=== PATIENT | female | born 1990 | race Caucasian/White ===

== ENCOUNTER 2019-04-13 10:42 | Emergency (ER) | payer OTHER ==
[2019-04-13] MEDS ORDERED: ONDANSETRON ODT 4 MG TABLET TL STA (11:11)
[2019-04-13] MEDS ORDERED: SUMAtriptan 6 MG/0.5 ML VIAL SUBQ STA (11:11)
[2019-04-13] MEDS ORDERED: PROMETHAZINE INJ 25 MG in SODIUM CHLORIDE 0.9% 50 ML IV STA (12:25)
[2019-04-13] MEDS ORDERED: KETOROLAC 30 MG/ML VIAL IVP STA (12:25)
[2019-04-13] MEDS ORDERED: SODIUM CHLORIDE 0.9% 1,000 ML IV ONE ×2 (12:25→13:33)
[2019-04-13] MEDS ORDERED: diphenhydrAMINE INJ 50 MG/ML VIAL IVP STA (12:25)
[2019-04-13 14:08] VITALS: BP 89/57
--- NOTE | 2019-04-13 14:10 | ED Physician Documentation ---
PD HPI HEADACHE - Stated complaint Stated Complaint: LUONG - Chief complaint Chief Complaint: Neuro - History obtained from History obtained from: Patient - History of Present Illness Timing - onset: How many days ago (2-3) Timing - onset during: Rest Timing - duration: Days (2-3) Timing - details: Gradual onset Pain level max: 8 Pain level now: 7 Location: Global Quality: Throbbing, Aching Associated symptoms: Nausea. No: Fever, Stiff neck, Vomiting, Weakness, Numbness, Syncope, Seizure, Eye pain, Vision changes Improved by: Rest, Dark room Worsened by: Light, Noise Similar symptoms before: Has not had sx before Recently seen: Not recently seen Review of Systems Constitutional: denies: Fever, Chills Eyes: reports: Photophobia Ears: denies: Ear pain Nose: denies: Rhinorrhea / runny nose, Congestion Respiratory: denies: Cough GI: reports: Nausea. denies: Diarrhea : denies: Dysuria, Frequency, Hesitancy, Now EGA Skin: denies: Rash Musculoskeletal: denies: Neck pain, Back pain PD PAST MEDICAL HISTORY - Past Medical History Past Medical History: No - Present Medications Home Medications: Ambulatory Orders Medication Instructions Recorded Confirmed Phentermine/Topiramate [Qsymia 7.5 1 each PO 04/13/19 04/13/19 mg-46 mg Capsule] - Allergies Allergies/Adverse Reactions: Allergies Allergy/AdvReac Type Severity Reaction Status Date / Time No Known Drug Allergies Allergy Verified 04/13/19 10:52 - Social History Does the pt smoke?: No Smoking Status: Never smoker Does the pt have substance abuse?: No - Immunizations Immunizations are current?: Yes PD ED PE NORMAL - Vitals Vital signs reviewed: Yes - General General: Alert and oriented X 3, No acute distress, Well developed/nourished - HEENT HEENT: PERRL, EOMI, Moist mucous membranes, Pharynx benign, Other - Neck Neck: Supple, no meningeal sign - Cardiac Cardiac: RRR, Strong equal pulses - Respiratory Respiratory: No respiratory distress, Clear bilaterally - Abdomen Abdomen: Soft, Non tender, Non distended - Back Back: No spinal TTP - Derm Derm: Warm and dry - Extremities Extremities: No edema - Neuro Neuro: Alert and oriented X 3, 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, No motor deficit, No sensory deficit, Normal speech Eye Opening: Spontaneous Motor: Obeys Commands Verbal: Oriented GCS Score: 15 - Psych Psych: Normal mood, Normal affect Results - Vitals Vitals: Vital Signs - 24 hr 04/13/19 04/13/19 04/13/19 10:50 12:44 13:05 Temperature 37 C Heart Rate 101 H 51 L 63 Respiratory 20 18 18 Rate Blood Pressure 123/92 H 80/63 L 109/71 O2 Saturation 99 100 100 04/13/19 14:07 Temperature Heart Rate 54 L Respiratory 18 Rate Blood Pressure 89/57 L O2 Saturation 100 Oxygen O2 Source Room air PD MEDICAL DECISION MAKING - ED course Complexity details: re-evaluated patient, considered differential, d/w patient ED course: Patient initially given Imitrex and Zofran, headache improved but did not resolve. An IV was then placed and she was given Toradol, Phenergan and Benadryl. Headache resolved. Feels much better. Also given IV fluids. Tolerating p.o. without difficulty. No evidence of subarachnoid hemorrhage, tumor. She would like to go home at this time. Patient counseled regarding signs and symptoms for which I believe and urgent re-evaluation would be necessary. Patient with good understanding of and agreement to plan and is comfortable going home at this time This document was made in part using voice recognition software. While efforts are made to proofread this document, sound alike and grammatical errors may occur. Departure - Departure Disposition: 01 Home, Self Care Clinical Impression: Headache Qualifiers: Headache type: unspecified Headache chronicity pattern: acute headache Intractability: not intractable Qualified Code(s): R51 - Headache Condition: Good Instructions: ED Headache Migraine Follow-Up: Misa Uriarte DO [Primary Care Provider] - Within 1 week Comments: Return if you worsen. Drink plenty of fluids at home. Rest today. Do not drive until 8pm tonight. Discharge Date/Time: 04/13/19 14:22
== END 2019-04-13 14:22 | disposition home or self-care (01) ==
LOC: ED 10:42
DX: R51 Headache (principal); R11.0 Nausea; H53.149 Visual discomfort, unspecified
CPT/HCPCS: 96361; 96365; 96372; 96375; 99283; J1200; J7040; Q0162

== ENCOUNTER 2020-03-05 17:00 | Outpatient (CLI) | payer OTHER ==
--- NOTE | 2020-03-05 17:11 | SLEEP CARE CONSULTATION ---
Information from patient questionnaire entered by Cheyenne Villagran. I have reviewed and concur with the information entered by Cheyenne Villagran. This document represents the service I personally performed and the decisions made by , Chandrika Bledsoe ARNP. History of Present Illness Service Date and Time: 03/05/2020 1700 Initial [place] Sleepiness Scale score: 18 (in 2019) Additional HPI information: HYACINTH GUTIÉRREZ returns per [employer] for follow up and results of the recently performed polysomnography. The patient was informed of the following findings: Her study showed a normal AHI of 3.5 with johanne oxygen saturation of 89% and a supine elevated AHI of 5.6. I explained the pathophysiology behind obstructive sleep apnea. Patient does not have sleep apnea and was advised how weight gain could increase the risk of developing sleep apnea in the future. Since patient has more severe apnea in supine position, patient advised to avoid supine sleep with pillow positioning or use of T-shirt with tennis balls sewn in to reduce apnea risk. Patient has light/mild snoring. Snoring can be reduced by weight loss. Snoring can also be treated with an oral appliance from a dentist. Advised to check insurance coverage. In addition, an ENT evaluation can be do to see if other treatment is indicated. Patient counseled not drink alcohol less than 4 hours before bedtime as it can increase snoring and apnea. Patient was cautioned about risks of drowsy driving until sleepiness symptoms resolve. Sleep Study - Results Type of Sleep Study: Polysomnography Polysomnography/Home Sleep Study results: IMPRESSION: The quality of the study is good. The patient had normal sleep effic iency. The sleep architecture was normal as well. Respiratory monitoring showed no significant sleep disordered breathing (AHI = 3.5) or hypoxia (johanne oxygen saturation of 89%). The few respiratory events occurred almost exclusively during supine sleep (supine AHI = 5.6; non-supine = 0.35). Snore was light in intensity. There was no significant periodic leg movement of sleep. Cardiac rhythm was normal sinus rhythm without significant arrhythmia. No abnormal behavior (parasomnia) observed during the night. Physical Exam Vital signs obtained and entered by: Telehealth visit, no vital signs obtained Height: 5 ft 7 in Impression and Plan Snoring but no significant sleep disordered breathing. Since patient had an elevated supine AHI of 5.6, she was strongly encouraged to sleep primarily in non-supine position. Patient advised that often weight loss will reduce snoring as well as apnea risk. An oral appliance can also be used for snoring. This would require a dental consultation. Patient cautioned not to use other online appliances as can cause bite issues. Patient is advised to check if insurance will cover. An ENT consult can also be helpful to determine if any other treatment is an option. * Attempt to lose weight * Avoid alcohol consumption near bedtime * Patient advised to sleep non-supine due to elevated AHI supine. * Return in as needed for follow up if symptoms worsen or change. Visit Type: Telehealth Video Video Type: [employer] Patient Location: Home Location of Provider: Office Patient agrees and consents to this telehealth visit type: Yes Patient agrees to have their insurance billed: Yes Time Spent with Patient (minutes): 15 Provider Statement: I spent 100% of the Telehealth Video Call with the patient with greater than 50% spent counseling the patient and coordination of care.
== END 2020-03-05 17:01 | disposition home or self-care (01) ==
LOC: SC 17:00
PROVIDERS: ATTEND Nurse Practitioner Family
DX: R06.83 Snoring (principal)

== ENCOUNTER 2020-05-19 10:29 | Outpatient (CLI) | payer OTHER ==
--- NOTE | 2020-05-19 12:59 | SLEEP CARE CONSULTATION ---
Information from patient questionnaire entered by Kayleigh England. I have reviewed and concur with the information entered by Kayleigh England. This document represents the service I personally performed and the decisions made by me, Violet Castaneda MD, [facility]. History of Present Illness Service Date and Time: 05/19/2020 1029 AHI: 3.5 Reason for follow up: three month (discuss sleep study further) Prior sleep studies: Yes Year and Where: 02/2020 [facility] Type of Sleep Study: Polysomnography HPI additional information: HPI: Ms. Rousseau returns to further discuss the results of her sleep study performed earlier in February. The study overall was negative for significant sleep disordered breathing but her supine AHI was slightly elevated at 5.6. She was recommended to not sleep on her back. She reports that she cannot sleep on her side much because her arms get numb. She also has gained another 8 lbs and is hoping for a bariatric surgery. Sleep Study - Results Prior sleep studies: No Subjective Initial [place] Sleepiness Scale score: 18 (in 2019) Allergies and Home Medications Drug allergies reviewed: Yes Home medication list reviewed: Yes Review of Systems Review of systems same as previous: Yes Physical Exam Height: 5 ft 7 in Weight: 238 lb Body Mass Index: 37.3 BMI Classification: Obese Impression and Plan IMPRESSION: 1. Obstructive Sleep Apnea-Hypopnea Syndrome during supine sleep. Because the patient sleeps mostly on her back at home, I will repeat the in- laboratory polysomnography and have her sleep on her back as much as possible. PLAN: 1. Repeat in-laboratory polysomnography. 2. Attempt to lose weight. 3. Return for a follow up after the sleep study to discuss results. Visit Type: In Office Time Spent with Patient (minutes): 15 Provider Statement: I spent 100% of the Face to Face Visit with the patient with greater than 50% spent counseling the patient and coordination of care.
== END 2020-05-19 10:30 | disposition home or self-care (01) ==
LOC: SC 10:29
PROVIDERS: ATTEND Internal Medicine Pulmonary Disease
DX: G47.33 Obstructive sleep apnea (adult) (pediatric) (principal); E66.9 Obesity, unspecified; Z68.37 Body mass index [BMI] 37.0-37.9, adult
CPT/HCPCS: 99212; 99213

== ENCOUNTER 2020-05-28 20:28 | Outpatient (CLI) | payer OTHER | END 2020-05-28 20:29 | disposition home or self-care (01) | LOC: SC 20:28 | PROVIDERS: ATTEND Internal Medicine Pulmonary Disease | DX: R06.83 Snoring (principal); R06.81 Apnea, not elsewhere classified; G47.10 Hypersomnia, unspecified; E66.9 Obesity, unspecified; Z68.36 Body mass index [BMI] 36.0-36.9, adult | CPT/HCPCS: 95810 ==

== ENCOUNTER 2020-06-02 09:54 | Outpatient (CLI) | payer OTHER ==
--- NOTE | 2020-06-02 10:44 | SLEEP CARE CONSULTATION ---
Information from patient questionnaire entered by Cheyenne Villagran. I have reviewed and concur with the information entered by Cheyenne Villagran. This document represents the service I personally performed and the decisions made by me, Violet Castaneda MD, [facility]. History of Present Illness Service Date and Time: 06/02/2020 0954 Initial [place] Sleepiness Scale score: 18 (in 2019) Current [place] Sleepiness Scale score: 17 Additional HPI information: HPI: Ms. Rousseau returned for follow up of the sleep study she had on 05-28-20. The polysomnography showed that the patient had normal sleep efficiency. The sleep architecture was also normal. Respiratory monitoring showed no significant sleep disordered breathing (AHI = 0.9) associated or hypoxia (johanne oxygen saturation of 91%). The patient only slept supine during this study (supine AHI = 0.9; non-supine = 0.00). No audible snore. There was no significant periodic leg movement of sleep. Cardiac rhythm was normal sinus rhy thm without significant arrhythmia. No abnormal behavior (parasomnia) observed during the night. The patient was informed of these findings. I explained to her that she again does not have significant sleep disordered breathing. Sleep Study - Results Type of Sleep Study: Polysomnography Prior sleep studies: No Year and Where: 02/2020 [facility] Review of Systems Review of systems same as previous: Yes Physical Exam Height: 5 ft 7 in Weight: 238 lb Body Mass Index: 37.3 BMI Classification: Obese Impression and Plan IMPRESSION: 1. Fatigue, without significant sleep disordered breathing. This is the second in-laboratory polysomnography she had. The patient will continue to pursue weight reduction surgery. PLAN: 1. Return for follow up on as needed basis. Visit Type: In Office Time Spent with Patient (minutes): 8 Provider Statement: I spent 100% of the Face to Face Visit with the patient with greater than 50% spent counseling the patient and coordination of care.
== END 2020-06-02 09:55 | disposition home or self-care (01) ==
LOC: SC 09:54
PROVIDERS: ATTEND Internal Medicine Pulmonary Disease
DX: R53.83 Other fatigue (principal); E66.9 Obesity, unspecified; Z68.37 Body mass index [BMI] 37.0-37.9, adult
CPT/HCPCS: 99212